=== PATIENT | female | born 1985 | race Caucasian/White ===

== ENCOUNTER 2024-01-16 00:25 | Emergency (ER) | payer BC, SELFPAY ==
[2024-01-16 00:27] VITALS: BP 150/82
[2024-01-16 00:57] VITALS: BP 126/75
[2024-01-16 00:58] VITALS: BMI 31.4
[2024-01-16 01:00] VITALS: BP 123/77
[2024-01-16] MEDS: TYLENOL 1000 MG PO (01:18)
[2024-01-16] MEDS: NSS 1000 IV (01:19)
[2024-01-16 01:26] LABS: % Basophils 1.5 % (0-2); % Eosinophils 5.5 % (0-6); % Immature Granulocytes 0.4 % (0-0.5); % Lymphocytes 34.8 % (20.5-51.1); % Neutrophils 48.8 % (42.2-75.2); Absolute Basophils 0.1 10^3/uL (0-0.2); Absolute Eosinophils 0.4 10^3/uL (0-0.7); Absolute Lymphocytes 2.3 10^3/uL (1.2-3.4); Absolute Monocytes 0.6 10^3/uL (0.1-0.6); Absolute Neutrophils 3.3 10^3/uL (1.4-6.5); Hematocrit 34.6 % (37.0-47.0); Hemoglobin 12.1 g/dL (12.0-16.0); Mean Corpuscular Hgb 30.4 pg (27.0-31.0); Mean Corpuscular Volume 86.9 fL (81.0-99.0); Mean Platelet Volume 10.3 fL (7.4-10.4); Nucleated Red Blood Cells % 0 %; Platelet Count 273 10^3/uL (130-400); Red Blood Cell Count 3.98 10^6/uL (4.20-5.40); Red Cell Dist. Width 13.1 % (11.5-14.5); White Blood Cell Count 6.7 10^3/uL (4.8-10.8)
--- NOTE | 2024-01-16 01:34 | ED.GENMED ---
History of Present Illness
General
Chief Complaint: Heart Rate Problem
Source: patient
Exam Limitations: none
Time Seen by Provider: 01/16/24 00:41
History of Present Illness
History of Present Illness:
This is a 38 year old female that comes in with c/o feeling like her heart was racing. States that she was awakened from sleep and she felt like her heart was racing. States that she thought it was an anxiety attack and she tried to stay calm.
States that she got up and went to the [place]. States that recently she has had neck, back and head pain for the past week. States that she started to have chills and shaking and her could feel her heart beating hard. States that she felt SOB,
nauseated, has a headache and was dizzy when this was going on with some chest pain States that she was not cold but had shaking chills. Denies any fever, abd pain, vomiting, diarrhea, urinary burning.
Past History
Past History
ED Past Medical History: Hypothyroidism, Psychiatric (Anxiety) and Other (Iron deficiency anemia, Reactive airway with exercises)
ED Past Surgical History: Other (Cyst removed from Temporal area)
Social History
Tobacco: Non-smoker
Alcohol: Occasional
Personal:
Living: with family
Employment: Employed
Family History
Family History: Other (Noncontributory)
Review of Systems
Review of Systems
All Other Systems: ROS reviewed and negative except as documented in HPI and ROS
Constitutional: Reports chills; Denies fever
EENT: Reports no symptoms
Respiratory: Reports trouble breathing; Denies cough
Cardiac: Reports other (Heart racing); Denies chest pain
ABD/GI: Reports nausea; Denies abdominal pain, vomiting or diarrhea
: Reports no symptoms; Denies dysuria, frequency or urgency
Musculoskeletal: Reports no symptoms
Skin: Reports no symptoms
Neurological: Reports dizzy and headache
Psychiatric: Reports no symptoms
Phy Exam
General Physical Exam
General Presentation: no apparent distress
General age: appears stated age
General Skin: warm and dry
General Habitus: normal
General Mental: alert
General Hydration: appears well hydrated
ENT Exam
ENT Exam: TM's normal, pharynx normal and neck supple
Eye Exam
Eye Exam: EOMI
Cardiovascular Exam
Cardiovascular Exam: regular rate/rhythm, no edema, no murmur and normal peripheral pulses
Pulmonary Exam
Pulmonary Exam: lungs clear, no respiratory distress, no rales, chest non tender, no crackles, no rhonchi, no wheezing and no cough
Gastrointestinal Exam
Gastrointestinal Exam: normal bowel sounds, non tender, soft, no organomegaly, no pulsatile mass and non distended
Musculoskeletal Exam
Musculoskeletal Exam: full ROM and no edema
Skin Exam
Skin Exam: normal color, warm/dry, no rash and no petechia
Psychiatric Exam
Psychiatric Exam: normal mood/affect
Course
Orders/Labs/Results
Orders:
Orders
01/16/24 00:35
EKG [Electrocardiogram (*1)] Urgent
Reason for Study: Palpitations
EKG- Treatment ONCE
01/16/24 01:06
0.9% Sodium Chloride 1000 ml [Nss] 1,000 ml IV BOLUS
Acetaminophen [Tylenol] 1,000 mg PO NOW STA
Test Result ONCE
01/16/24 01:18
Complete Blood Count/With Diff Urgent
Comprehensive Metabolic Panel Urgent
D-Dimer Urgent
HCG, Serum Qualitative Screen Urgent
Iron Urgent
Troponin I Urgent
01/16/24 01:37
Add On- LAB Urgent
Tests Added?: Iron
01/16/24 01:44
CR Chest - 2 Views Urgent
Comment:
Reason For Exam: Chest pain, SOB
01/16/24 02:22
CT Head W/o Iv Contrast Urgent
Comment:
Reason For Exam: Headache,
01/16/24 02:51
COVID-19 Antigen Urgent
Source: Nasal Swab
01/16/24 03:32
Ketorolac [Toradol] 30 mg IV NOW STA
Abnormal Lab Results
01/16/24
01:18
RBC 3.98 L 10^6/uL
(4.20-5.40)
Hct 34.6 L %
(37.0-47.0)
Glucose 127 H mg/dl
(70-99)
01/16/24 01:18
01/16/24 01:18
Glucose nonfasting. Otherwise labs normal. D-dimer <0.27, Iron level normal at 41, Troponin <0.012, HCG negative , COVID negative.
Vital Signs
Initial and Last Documented VS:
Initial Vital Signs
Temp Pulse Resp BP Pulse Ox
98.3 F 110 28 150/82 100
01/16/24 00:27 01/16/24 00:27 01/16/24 00:27 01/16/24 00:27 01/16/24 00:27
Last Documented Vital Signs
Temp Pulse Resp BP Pulse Ox
98.3 F 78 19 123/77 98
01/16/24 00:27 01/16/24 02:45 01/16/24 02:45 01/16/24 01:00 01/16/24 02:45
MDM/Problems Addressed
Differential Diagnosis Includes:
Anxiety,
MDM/Problems Addressed:
This is a 38 year old female that comes in with c/o her heart racing and chest pain. States that she was awakened form sleep and at first she thought it was an anxiety attack but it wasn't going away.
Will check labs, Give IV fluids.
Back into see patient. Explained that her blood work is normal along with her D-dimer and chest x-ry. Iron level is normal. Patient states that she just cognitively doesn't feel right. States that when she got up to the bathroom her leg was shaking
and she felt weak. Will test for COVID and CT head. .
Chronic conditions affecting care: Psychiatric illness (Anxiety)
Acute Exacerbation and/or Progression of Chronic Illness: Psychiatric illness (Anxiety)
*Radiology
Radiology exam reviewed: preliminary read by ED provider (Chest- Negative for active disease) and radiology read reviewed (CT head-No evidence of acute intracranial abnormality. Mild to moderate mucosal thickening involving the posterior aspect of
the left sphenoid sinus. )
*Pulse Oximetry
Patient hypoxic: no
*EKG
Interpreted by ED Provider?: Yes
Heart Rate: 86
Rate: normal
Rhythm: sinus
[place]: normal axis
QRS Pattern: normal QRS
Ischemia: no ischemia
*Instrument [employer]ic [employer] Interpretation
Rate: normal
Heart Rate: 85
Rhythm: sinus
*Critical Care Note
Total Time (30-74mins, 75-104mins- exclusive of procedures): Not Applicable
ED Attending Note
-
Portions of this chart may have been created with voice recognition software.� Occasional wrong word or��sound alike� substitutions may have occurred due to the inherent limitations of voice recognition software.
Discharge Plan
Departure
Patient Disposition: Home (Routine Discharge)
Date of Disposition: 01/16/24
Time of Disposition: 03:38
Patient with high blood pressure during this ER visit?: Yes
Condition: Good
Covid-19: Negative COVID-19
Discharge Problem:
Panic attack
Instructions: Anxiety, Adult (DC), Panic Disorder (DC), BLOOD PRESSURE
Prescriptions:
No Action
levothyroxine 175 mcg Tablet
175 mcg PO DAILY
albuterol sulfate 90 mcg/actuation Aerosol Powdr Breath Activated
2 inh INHALATION R Q4HPRN PRN (Reason: sob)
Monoferric 100 mg iron/mL Solution
1,000 mg IV [id number]
pantoprazole [Protonix] 40 mg tablet,delayed release (DR/EC)
40 mg PO DAILY Qty: 14 0RF
Referrals:
Trevor Jordan DO [Family Provider] - Follow up in 2-3 days
Activity Restrictions/Additional Instructions:
As discussed, your blood work is normal. Your negative for COVID, Chest x-ray is normal. Iron level is normal along with a D-dimer which is a marker for a pulmonary embolism. Your CT of the head is negative. This is most likely a panic/anxiety
attack. Please increase your water intake to 8-8oz glasses daily. Follow up with the family doctor for recheck. Tylenol 1000mg every 6 hours and alternate with Ibuprofen 600mg every 6 hours with food for headache pain. IF YOU HAVE ANY OTHER CONCERNS
PLEASE RETURN TO THE EMERGENCY ROOM.
Interventions
Interventions:
*Risk Screen - Suicide Last Done: 01/16/24 00:27
*General Assessment Last Done: 01/16/24 04:19
*Neglect/Abuse Screening Last Done: 01/16/24 00:27
ED- Fall Risk Assessment Last Done: 01/16/24 02:18
*ED COVID-19 Vaccine History Last Done: 01/16/24 04:19
*Nursing Disposition Last Done: 01/16/24 04:19
ED- Cardiac Assessment Last Done: 01/16/24 02:18
ED-Psychological Assessment Last Done: 01/16/24 02:18
ED- Pulmonary Assessment Last Done: 01/16/24 02:18
Discharge Date and Time
Discharge Date/Time: 01/16/24 04:20
Print Language: SWEDISH
[2024-01-16 01:36] LABS: HCG, Serum Qualitative Screen Negative
[2024-01-16 01:39] LABS: ALT (SGPT) 17 U/L (0-35); AST (SGOT) 20 U/L (14-36); Albumin 4.5 g/dl (3.5-5.0); Alkaline Phosphatase 53 U/L (38-126); Blood Urea Nitrogen 13 mg/dl (7-17); Calcium 9.7 mg/dl (8.4-10.2); Carbon Dioxide 26 mmol/L (22-30); Chloride 104 mmol/L (98-107); Estimated Creatinine Clearance > 125 ml/min; Glucose 127 mg/dl (70-99); Potassium 3.8 mmol/L (3.5-5.1); Sodium 142 mmol/L (135-145); Total Bilirubin 0.4 mg/dl (0.2-1.3); Total Protein 6.7 g/dl (6.3-8.2); eGFR > 60.00
[2024-01-16 01:49] LABS: D-Dimer < 0.27 ug/mlFEU (0.00-0.50)
[2024-01-16 01:51] LABS: Troponin I < 0.012 ng/ml
[2024-01-16 02:02] LABS: Iron 41 ug/dl (37-170)
[2024-01-16 03:16] LABS: COVID-19 Antigen Negative (Negative)
== END 2024-01-16 04:20 | disposition home or self-care (01) ==
LOC: EMR 00:25
PROVIDERS: Clinical Nurse Specialist Family Health; EMERGENCY PHYSICIAN Student in an Organized Health Care Education/Training Program; FAMILY PHYSICIAN Family Medicine
DX: F41.0 Panic disorder [episodic paroxysmal anxiety] (principal); R03.0 Elevated blood-pressure reading, without diagnosis of hypertension; Z11.52 Encounter for screening for COVID-19
CPT/HCPCS: 99285; 96360; 70450; 71046; 80053; 83540; 84484; 84703; 85025; 85379; 87811; 93005

== ENCOUNTER 2024-08-07 15:54 | Emergency (ER) | payer BC, SELFPAY ==
[2024-08-07 16:38] LABS: % Basophils 1.1 % (0-2); % Eosinophils 2.6 % (0-6); % Immature Granulocytes 0.4 % (0-0.5); % Neutrophils 67.9 % (42.2-75.2); Absolute Basophils 0.1 10^3/uL (0-0.2); Absolute Eosinophils 0.2 10^3/uL (0-0.7); Absolute Lymphocytes 1.6 10^3/uL (1.2-3.4); Absolute Monocytes 0.8 10^3/uL (0.1-0.6); Absolute Neutrophils 5.8 10^3/uL (1.4-6.5); Hematocrit 39.9 % (37.0-47.0); Hemoglobin 13.4 g/dL (12.0-16.0); Mean Corp Hgb Conc. 33.6 g/dL (33.0-37.0); Mean Corpuscular Hgb 29.4 pg (27.0-31.0); Mean Corpuscular Volume 87.5 fL (81.0-99.0); Mean Platelet Volume 10.5 fL (7.4-10.4); Nucleated Red Blood Cells % 0 %; Platelet Count 272 10^3/uL (130-400); Red Blood Cell Count 4.56 10^6/uL (4.20-5.40); White Blood Cell Count 8.5 10^3/uL (4.8-10.8)
[2024-08-07 17:01] LABS: Troponin I < 0.012 ng/ml
[2024-08-07 17:05] LABS: ALT (SGPT) 12 U/L (0-35); AST (SGOT) 18 U/L (14-36); Albumin 4.9 g/dl (3.5-5.0); Alkaline Phosphatase 66 U/L (38-126); Blood Urea Nitrogen 16 mg/dl (7-17); Calcium 9.5 mg/dl (8.4-10.2); Carbon Dioxide 26 mmol/L (22-30); Chloride 104 mmol/L (98-107); Glucose 104 mg/dl (70-99); Sodium 142 mmol/L (135-145); Total Bilirubin 0.9 mg/dl (0.2-1.3); Total Protein 7.5 g/dl (6.3-8.2); eGFR > 60.00
[2024-08-07] MEDS: NSS 500 IV (18:02)
[2024-08-07] MEDS: TORADOL 15 MG IV (18:02)
--- NOTE | 2024-08-07 18:19 | ED.GENMED ---
History of Present Illness
General
Chief Complaint: Chest Pain
Source: patient and spouse
Exam Limitations: none
Time Seen by Provider: 08/07/24 17:08
Nursing documentation reviewed up to this point in time: agreed with
History of Present Illness
History of Present Illness:
Patient is a 38-year-old female presenting to the emergency department for evaluation of left-sided chest pain. Patient states she was woken up last night with a tightness across her mid chest and an intermittent sharp stabbing into her left upper
chest. She also endorses pain under her left breast radiating to her left back. Pain is significantly worse when she takes a deep breath. She feels pain is better when leaning forward. Patient denies any exertional chest pain, fever, cough,
dizziness/lightheadedness. No known inciting injury.
Patient does note that she had bronchitis about 1 to 2 weeks ago.
Patient has no personal or family history of blood clots. No exogenous hormone use. No lower leg pain or swelling. However�patient did have a hysterectomy June 14, 2024.
Past History
Past History
ED Past Medical History: Hypothyroidism, Psychiatric (Anxiety) and Other (Iron deficiency anemia, Reactive airway with exercises)
ED Past Surgical History: Other (Cyst removed from Temporal area)
Social History
Tobacco: Non-smoker
Alcohol: Occasional
Personal:
Living: with family
Employment: Employed
Family History
Family History: Other (Noncontributory)
Review of Systems
Review of Systems
Allergies reviewed?: Yes
All Other Systems: ROS reviewed and negative except as documented in HPI and ROS
Phy Exam
Physical Exam
Physical Exam:
Vitals: Patient's vital signs are stable. Afebrile
General: Patient is uncomfortable due to pain. Nontoxic appearing
Skin: Warm and dry, no rashes or lesions
Head: Normocephalic, atraumatic
Eyes: Sclera nonicteric. EOMs intact. No nystagmus.
Throat: Protecting airway
Neck: Normal ROM, no cervical spine tenderness, no meningismus
Cardiac: Regular rate and rhythm, no murmurs.
Pulm: Shallow breaths due to pain. Lungs clear bilaterally without wheeze. O2 saturation 100 on room air.
Abdomen: Abdomen soft and nontender.
Extremities: No evidence of cyanosis or edema. Palpable DP pulse bilaterally. Negative Homans' sign bilaterally
Neuro: AAOx3. Grossly intact.
Psychiatric: Normal affect.
Scores
Heart Score for Chest Pain Patients
STEMI patient?: No
History: Slightly or Non-Suspicious
ECG: Normal
Age: </= 45 years
Risk Factors: No Risk Factors
Troponin: </= Normal Limit
Heart Score for Chest Pain Patients: 0
Heart Score Risk: 2.5% MACE over next 6 weeks
Course
Orders/Labs/Results
Orders:
Orders
08/07/24 15:54
ECG [Electrocardiogram (*1)] Urgent
Reason for Study: Chest Pain
EKG- Treatment ONCE
08/07/24 16:06
CXR2 [CR Chest - 2 Views ] Urgent
Comment:
Reason For Exam: chest pain w/ back pain
08/07/24 16:28
Complete Blood Count/With Diff Urgent
Comprehensive Metabolic Panel Urgent
HCG, Serum Qualitative Screen Urgent
Comment: ADD ON
Troponin I Urgent
08/07/24 17:47
0.9% Sodium Chloride 500 ml [Nss] 500 ml IV BOLUS
Ketorolac [Toradol] 15 mg IV NOW STA
08/07/24 18:49
D-Dimer Urgent
08/07/24 19:27
Troponin I Urgent
08/07/24 19:30
Electrocardiogram (*1) Urgent
Reason for Study: Chest Pain
EKG- Treatment ONCE
08/07/24 19:37
Add On- LAB Urgent
Tests Added?: serum hcg
CT Chest PE Study Urgent
Comment:
Reason For Exam: pleuritic left sided chest pain
08/07/24 20:58
Amoxicillin 875 mg/Clav 125 mg [Augmentin 875 mg/125 mg] 1 tablet PO NOW STA
Doxycycline [Vibramycin] 100 mg PO NOW STA
Abnormal Lab Results
08/07/24
16:28
MPV 10.5 H fL
(7.4-10.4)
Absolute Monos (auto) 0.8 H 10^3/uL
(0.1-0.6)
Lymphocytes % 19.0 L %
(20.5-51.1)
Glucose 104 H mg/dl
(70-99)
08/07/24 16:28
08/07/24 16:28
Vital Signs
Initial and Last Documented VS:
Initial Vital Signs
Temp Pulse Resp Pulse Ox
98.8 F 88 16 98
08/07/24 16:04 08/07/24 16:04 08/07/24 16:04 08/07/24 16:04
Last Documented Vital Signs
Temp Pulse Resp BP Pulse Ox
98.8 F 85 16 135/77 100
08/07/24 16:04 08/07/24 21:21 08/07/24 16:04 08/07/24 21:21 08/07/24 21:21
MDM/Problems Addressed
Differential Diagnosis Includes:
Not limited to: Costochondritis, pleurisy, bronchitis, pneumonia, pulmonary embolism, etc.
MDM/Problems Addressed:
38 y.o F with history as documented presenting with acute onset pleuritic left sided chest pain. No associated fever, cough, syncopal episodes or exertional component to symptoms. Patient did have a hysterectomy approximately two months ago. Vitals
stable on arrival. Physical exam as above. Patient does appear moderately uncomfortable due to pain although cardio/pulmonary assessment unremarkable. No evidence of lower extremity edema. Labs were initiated in triage without any clinically
significant abnormalities. Initial troponin undetectable with a nonischemic EKG. Chest x-ray also performed prior to my evaluation without any acute abnormalities. Ultimately � feel patient low risk for PE given hysterectomy was almost 2 months ago
without any other risk factors. However - given significant pleuritic component to symptoms will obtain D dimer. Will trend troponin although low suspicion for ACS. Toradol for pain.
Update: Patient reassessed at bedside who does have some improvement in pain following Toradol. D- dimer at top limit of normal, 0.45. Decision was made to proceed with CTA to rule out pulmonary embolism and further evaluate. Repeat troponin pending.
Update: Repeat troponin undetectable with unchanged EKG. CTA chest shows no evidence of PE although does note opacity in left lower low concerning for pneumonia. Suspect this is likely contributing to patient�s presenting symptoms. Patient did have
recent bronchitis, diagnosed about two weeks ago. She is overall well appearing, afebrile with no leukocytosis. She is not tachypneic or hypoxic. Feel good candidate for outpatient management. Will start patient on doxycycline and Augmentin.
Advised NSAIDs prn pain. Strict return precautions discussed. Patient and patient�s family comfortable with plan. All questions answered.
Chronic conditions affecting care:
N/A
Acute Exacerbation and/or Progression of Chronic Illness:
N/A
*Radiology
Radiology exam reviewed: radiology read reviewed
*Pulse Oximetry
Patient hypoxic: no
*EKG
Interpreted by ED Provider?: Yes
EKG Intrepretation Date: 08/07/24
Interpretation: normal
Comparison EKG: no changes
Heart Rate: 83
Rate: normal
Rhythm: sinus
*Donor Specialist Interpretation
Rate: Donor Specialist- N/A
*Critical Care Note
Total Time (30-74mins, 75-104mins- exclusive of procedures): Not Applicable
ED Attending Note
-
Portions of this chart may have been created with voice recognition software.� Occasional wrong word or��sound alike� substitutions may have occurred due to the inherent limitations of voice recognition software.
Discharge Plan
Departure
Patient Disposition: Home (Routine Discharge)
Date of Disposition: 08/07/24
Time of Disposition: 20:59
Patient with high blood pressure during this ER visit?: Yes
Condition: Good
Covid-19: Negative COVID-19
Discharge Problem:
Left lower lobe pneumonia
Instructions: Pneumonia in adults - ED discharge instructions, BLOOD PRESSURE
Prescriptions:
New
amoxicillin-pot clavulanate 875-125 mg tablet
1 tab PO BID 5 Days Qty: 10 0RF
doxycycline hyclate 100 mg capsule
100 mg PO BID 5 Days Qty: 10 0RF
No Action
levothyroxine 175 mcg Tablet
175 mcg PO DAILY
albuterol sulfate 90 mcg/actuation Aerosol Powdr Breath Activated
2 inh INHALATION R Q4HPRN PRN (Reason: sob)
Monoferric 100 mg iron/mL Solution
1,000 mg IV [id number]
pantoprazole [Protonix] 40 mg tablet,delayed release (DR/EC)
40 mg PO DAILY Qty: 14 0RF
Referrals:
Trevor Jordan DO [Family Provider] - Follow up in 1 week
Activity Restrictions/Additional Instructions:
Return to the emergency department with any high fevers, chest pain, shortness of breath/difficulty breathing, coughing up blood, worsening in current symptoms, or any other concerns
- Your CT scan showed evidence of left sided pneumonia today. 2 prescriptions have been sent to your pharmacy. You were given the first dose of these antibiotics in the emergency department today. You should be diligent with sun protection while
on the doxycycline and do not take immediately before bed. It is important you complete full courses of both antibiotics.
- You can continue to take Motrin as needed for pain. It is important you stay well-hydrated and get plenty of rest.
- Follow-up with primary care for further evaluation/management and to ensure that symptoms are improving
Monitor your symptoms closely and return to the emergency department with any acute worsening/new symptoms or any other concerns
Interventions
Interventions:
*Risk Screen - Suicide Last Done: 08/07/24 16:04
*Neglect/Abuse Screening Last Done: 08/07/24 16:04
*Nursing Disposition Last Done: 08/07/24 21:29
ED- Cardiac Assessment Last Done: 08/07/24 17:00
Discharge Date and Time
Discharge Date/Time: 08/07/24 21:30
Print Language: THAI
[2024-08-07 19:11] LABS: D-Dimer 0.45 ug/mlFEU (0.00-0.50)
[2024-08-07 19:51] VITALS: BP 136/77
[2024-08-07 19:58] LABS: Troponin I < 0.012 ng/ml
[2024-08-07 20:18] LABS: HCG, Serum Qualitative Screen Negative
[2024-08-07 21:21] VITALS: BP 135/77
[2024-08-07] MEDS: AUGMENTIN 875 MG/125 MG 1 TABLET PO (21:26)
[2024-08-07] MEDS: VIBRAMYCIN 100 MG PO (21:26)
== END 2024-08-07 21:30 | disposition home or self-care (01) ==
LOC: EMR 15:54
PROVIDERS: Emergency Medicine; Physician Assistant; EMERGENCY PHYSICIAN Emergency Medicine; FAMILY PHYSICIAN Family Medicine
DX: J18.9 Pneumonia, unspecified organism (principal); R03.0 Elevated blood-pressure reading, without diagnosis of hypertension
CPT/HCPCS: 99285; 96374; 96361; 71046; 71275; 80053; 84484; 84703; 85025; 85379; 93005; Q9967